=== PATIENT | male | born 1975 | race Caucasian/White ===

== ENCOUNTER 2021-02-08 17:12 | Inpatient (IN) | payer OTHER, SELFPAY ==
[2021-02-08] VITALS (8 sets, daily range): BP systolic 105–130; BP diastolic 62–74; PULSE 89–109; RESP 20–32; TEMP 37.2–38.8; O2SAT 89–94
--- NOTE | ~2021-02-08 | CT_ITS ---
EXAMINATION: CTA chest PE protocol DATE: 02/10/2021 12:51 INDICATION: Shortness of breath. COVID-19 positive on 02/01/21. TECHNIQUE: Computed tomography angiography (CTA) of the chest was performed with 100 mL Omnipaque-350 intravenous contrast timed to evaluate the pulmonary arteries. Coronal maximum intensity projection 3D-reconstructions were created by the technologist. Automated exposure control and iterative reconst ruction technique were employed. The dose-length product was 410.34 mGy-cm. COMPARISON: CT abdomen and pelvis 09/29/2009 FINDINGS: There are patchy groundglass opacities in all lobes and patchy airspace opacities in most l obes with areas of architectural distortion, consistent with COVID-19 pneumonia. No pleural effusion. The heart size is normal. No pericardial effusion. There is a small sliding hiatal hernia. There is no pulmonary embolus. The heart size is normal. No pericardial effusion. Calcified mediastinal lymph nodes are consistent with old granulomatous disease. There is mild mediastinal lymphadenopathy, likel y reactive. There is mild thoracic spondylosis. IMPRESSION: 1. No pulmonary embolus. 2. Diffuse lung disease, consistent with COVID-19 pneumonia. 3. Mild mediastinal lymphadenopathy, likely reactive. Reviewed, dictated and finalized at location A.
--- NOTE | ~2021-02-08 | XR_ITS ---
XR chest 1V 02/08/2021 18:13 Indication: Cough, fever and chills Procedure: PA and lateral views of the chest Comparison: No prior studies for comparison. Findings: Patchy bilateral airspace disease, compatible with pneumonia. Heart size normal. No signifi cant effusion or pneumothorax. No acute osseous abnormality. Impression: 1: Patchy bilateral airspace disease, compatible with pneumonia. Reviewed, dictated and finalized at location A. Impression: 1: Patchy bilateral airspace disease, compatible with pneumonia.
[2021-02-08 17:29] LABS: Basophils Percent Auto 0.1 % (0.2-1.2); Hematocrit 47.8 % (42.0-52.0); Hemoglobin 15.8 g/dL (14.0-18.0); Immature Granulocyte Absolute 0.03 K/mm3 (0.00-0.031); Immature Granulocyte Percent A 0.4 % (0-0.5); Lymphocytes Absolute Auto 1.01 K/mm3 (0.9-3.2); Lymphocytes Percent Auto 14.9 % (18.3-44.2); Mean Corpuscular HGB Conc 33.1 g/dl (32-36); Mean Corpuscular Hemoglobin 29.5 pg (26-34); Mean Corpuscular Volume 89.2 fl (80-100); Monocytes Absolute Auto 0.3 K/mm3 (0.1-0.6); Neutrophils Absolute Auto 5.4 K/mm3 (1.3-6.7); Neutrophils Percent Auto 79.6 % (45.5-73.1); Platelet Count Result 166 k/mm3 (150-375); Red Blood Count 5.36 M/mm3 (4.6-6.20); Red Cell Distribution Width 12.7 % (11.5-14.5); White Blood Count 6.8 K/mm3 (4.5-10.0)
[2021-02-08 17:40] LABS: Alanine Aminotransferase 75 U/L (4-50); Albumin Level 4.2 g/dL (3.5-5.1); Alkaline Phosphatase 52 U/L (38-126); Anion Gap 11 mmol/L (8-16); Aspartate Amino Transferase 73 U/L (17-59); Bilirubin,Total 0.6 mg/dL (0.2-1.3); Blood Urea Nitrogen 20 mg/dL (9-20); Calcium 8.6 mg/dL (8.4-10.2); Carbon Dioxide 25 mmol/L (22-30); Chloride 99 mmol/L (98-107); Estimated CRCL calculation 57 ml/min; Estimated Glomerular Filt Rate 50; Glucose 122 mg/dL (75-110); Lipase 98 U/L (23-300); Sodium 135 mmol/L (137-145)
--- NOTE | 2021-02-08 18:57 | ED.GENADULT ---
HPI - General Adult General Chief complaint: Nausea/Vomiting/Diarrhea Stated complaint: COVID+, diarrhea Time Seen by Provider: 02/08/21 18:42 Source: patient and RN notes reviewed Mode of arrival: ambulatory Limitations: no limitations History of Present Illness HPI narrative: This is a 45 year old male who presents for evaluation of diarrhea with COVID. He states he developed symptoms of covid 10 days ago. He reports headache, fever, diarrhea and cough. He states his headaches have resolved. He continues to have intermittent cough but he denies chest pain or sob. He has been checking his oxygen saturation at home and he reports his saturation has in 95%. He states he came to ER because he has been having watery, nonbloody diarrhea for days. He denies abdominal pain, nausea or vomiting. He has not been taking any medication for his diarrhea . He has only been taking Tylenol every 4 hours. He tested positive for covid on 02/01/21. He has not been vaccinated. Related Data Home Medications Medication Instructions Recorded Confirmed lisinopril 20 mg PO DAILY 02/08/21 Allergies Allergy/AdvReac Type Severity Reaction Status Date / Time No Known Allergies Allergy Verified 02/08/21 19:36 Review of Systems Review of Systems: All systems reviewed & are unremarkable except as noted in HPI and below PMFSH Past Medical History Medical History (Updated 02/08/21 @ 21:51 by Kelsi Forte MD) Hypertension Surgical History Surgical History (Updated 02/08/21 @ 19:03 by Kelsi Forte MD) Hx of tonsillectomy Family History Family History (Updated 03/31/14 @ 07:13 by DOCTOR UNKNOWN) Grandparent Carcinoma of colon Mother Family history of hyperthyroidism Social History Social History Smoking status: Never smoker Alcohol intake: never Exam Const: General: no acute distress and alert Orientation/consciousness: patient oriented x3 Other: appears to not feel well Eyes: EOM: EOMs intact bilaterally Resp: Effort & Inspection: normal respiratory effort, no retractions, not tachypneic and no use of accessory muscles Auscultation: crackles Cardio: Rate: regular rate Rhythm: regular rhythm Heart sounds: no murmurs GI: GI Palp: Yes Soft to palpation, No Tenderness to palpation present (GI) and No Guarding due to palpation present (GI) Auscultation: normal bowel sounds Skin: General skin exam: normal color Rashes: no rashes Neuro: General: patient oriented x3, moves all extremities and CN's II-XI intact bilaterally Psych: Mental Status: mental status grossly normal Affect: normal affect Course Reevaluation(s) Reevaluation #1: Patient has been doing well in ER. His oxygen saturation has been running 88-89% on room air at rest in the bed. Nursing staff placed him on 2 L NC. He is agreeable to admission for treatment of covid pneumonia. Date: 02/08/21 Time: 21:42 Consultations Consultation #1: I discussed case with Dr. Manley. She accepts patient to medical floor. She recommends starting Remdesivir, rocephin, azithromycin and covalescent plasma on patient. Date: 02/08/21 Time: 21:02 Vital Signs Vital signs: Vital Signs Temperature 101.5 F H 02/08/21 17:18 Pulse Rate 109 H 02/08/21 17:18 Respiratory Rate 20 02/08/21 17:18 Blood Pressure 130/62 02/08/21 17:18 Pulse Oximetry 94 02/08/21 17:18 Temperature 101.9 F H 02/08/21 20:01 Pulse Rate 89 02/08/21 20:01 Respiratory Rate 26 H 02/08/21 21:23 Blood Pressure 105/74 02/08/21 20:01 Pulse Oximetry 89 L 02/08/21 21:23 Medical Decision Making Vital Signs Vital Signs: Vital Signs Temperature 101.5 F H 02/08/21 17:18 Pulse Rate 109 H 02/08/21 17:18 Respiratory Rate 20 02/08/21 17:18 Blood Pressure 130/62 02/08/21 17:18 Pulse Oximetry 94 02/08/21 17:18 Temperature 101.9 F H 02/08/21 20:01 Pulse Rate 89 02/08/21 20:01 Respiratory Rate 26 H 02/08/21 21:23 Blood Pres
[2021-02-08] MEDS: ALBUTEROL SULFATE (*SP) AEROSOL 1 PUFF 4 PUFF INHALATION (19:12)
[2021-02-08] MEDS: LACTATED RINGERS 1,000 ML 999 ML IV CONT (19:49)
[2021-02-08] MEDS: IBUPROFEN IV 800 MG/200 ML 800 MG/200 ML BAG 400 MG IVPB (19:49)
[2021-02-08] MEDS: DEXAMETHASONE 2 MG TABLET 6 MG PO (21:09)
[2021-02-08 21:16] LABS: Add Urine Microscopic? YES; Appearance Urine Clear (Clear); Bilirubin Urine Negative (Negative); Blood Urine Negative (Negative); Color Urine Amber (Yellow); Glucose Urine UA Negative (Negative); Ketones Urine Negative (Negative); Leukocyte Esterase Ur Negative LEU/UL (Negative); Mucus Urine Few /lpf; Nitrate Urine Negative (Negative); Protein Urine 2+ mg/dL (Negative); Squamous Epithelial Cell Urine Rare /hpf (Few); Urobilinogen Urine Negative mg/dL (<2.0)
[2021-02-08 21:18] LABS: Specific Grav Ur 1.031 (1.001-1.035)
[2021-02-08 22:12] LABS: Alanine Aminotransferase 64 U/L (4-50); Estimated CRCL calculation 57 ml/min; Estimated Glomerular Filt Rate 50
[2021-02-08 22:17] LABS: INR 1.1; Prothrombin Time 13.6 Seconds (11.1-14.7)
[2021-02-09] VITALS (10 sets, daily range): BP systolic 107–142; BP diastolic 66–89; PULSE 68–93; RESP 14–20; TEMP 36.4–36.9; O2SAT 89–97
[2021-02-09] MEDS: REMDESIVIR 200 MG/NS 250 ML 200 MG/250 ML BAG 250 MG IVPB (00:16)
--- NOTE | 2021-02-09 05:35 | PM.IMHP ---
H&P: HPI History of Present Illness Date/Time: 02/09/21 05:35 Chief Complaint: DIARRHEA Narrative: THIS IS A 45-YEAR-OLD MALE WITH PAST MEDICAL HISTORY SIGNIFICANT FOR HYPERTENSION, PATIENT PRESENTED TO THE EMERGENCY ROOM DUE TO ONGOING DIARRHEA, FEVERS, MALAISE BODY ACHES AND PAIN MUSCLE PAIN HE TESTED POSITIVE FOR COVID ON January BUT HAS NOTED PERSISTENT FEVERS AND DIARRHEA COUGH PRODUCTIVE OF CLEAR SPUTUM. PRELIMINARY WORKUP WAS SIGNIFICANT FOR MILDLY ELEVATED CREATININE, A CHEST X-RAY WITH PATCHY BILATERAL INFILTRATES. Review of Systems Review of Systems: Narrative: FEVERS AND DIARRHEA Constitutional: Constitutional: Reports body ache(s), Reports chills, Reports fever(s), Reports lethargy and Reports malaise Eyes: Eyes: Denies change in vision ENT: Denies dysphagia, Denies nasal congestion, Denies nasal discharge, Denies nasal obstruction and Denies odynophagia Cardiovascular: Cardiovascular: Denies chest pain, Denies irregular heart rhythm, Denies lightheadedness, Denies radiating jaw, neck or arm pain, Denies palpitations and Denies dyspnea on exertion Respiratory: Respiratory: Denies change in phlegm color, Reports cough and Reports dyspnea Gastrointestinal: Gastrointestinal: Reports diarrhea, Denies nausea and Denies vomiting Comments: WATERY DIARRHEA Genitourinary: Genitourinary: Reports no additional male genitourinary complaints Musculoskeletal: Musculoskeletal: Reports no additional musculoskeletal complaints, Denies arthralgias and Denies joint swelling Integumentary/Breasts: Skin/Breast: Reports system reviewed and no additional complaints, except as docu Neurologic: Reports system reviewed and no additional complaints, except as documented Psychiatric: Psychiatric: Reports no additional psychiatric complaints Endocrine: Endocrine: Reports no additional endocrine complaints Hematologic/Lymphatic: Hematologic/Lymphatic: Reports no additional hematologic/lymphatic complaints Allergic/Immunologic: Allergic/Immunologic: Reports no additional allergic/immunologic complaints [facility] Past Medical History Medical History (Updated 02/08/21 @ 21:51 by Kelsi Forte MD) Hypertension Surgical History Surgical History (Updated 02/08/21 @ 19:03 by Kelsi Forte MD) Hx of tonsillectomy Family History Family History (Updated 03/31/14 @ 07:13 by DOCTOR UNKNOWN) Grandparent Carcinoma of colon Mother Family history of hyperthyroidism Social History Social History Smoking status: Never smoker Alcohol intake: current Drinks per week: 1 Substance use type: does not use Gender identity (if verbalized by the patient): Male Sexual Orientation (if Verbalized by the Patient): Straight or Heterosexual Spiritual care concerns: No Meds Home Medications and Allergies Home Medications Medication Instructions Recorded Confirmed Type lisinopril 20 mg PO DAILY 02/08/21 02/08/21 History Allergies Allergy/AdvReac Type Severity Reaction Status Date / Time No Known Allergies Allergy Verified 02/08/21 19:36 Vital Signs Vital Signs - 24 hr 02/08/21 17:18 02/08/21 19:38 02/08/21 19:42 Temperature 101.5 F H 101.9 F H Pulse Rate 109 H 95 95 Respiratory Rate 20 28 H 23 H Blood Pressure 130/62 106/70 106/70 Pulse Oximetry 94 94 91 02/08/21 19:49 02/08/21 20:01 02/08/21 21:23 Temperature 101.9 F H 101.9 F H Pulse Rate 89 Respiratory Rate 32 H 26 H Blood Pressure 105/74 Pulse Oximetry 90 89 L 02/08/21 22:24 02/08/21 23:13 02/09/21 00:00 Temperature 99.0 F 97.5 F L Pulse Rate 100 76 Respiratory Rate 26 H 18 Blood Pressure 105/74 124/79 Pulse Oximetry 94 94 96 02/09/21 04:18 Temperature 98.2 F Pulse Rate 68 Respiratory Rate 18 Blood Pressure 121/81 Pulse Oximetry 90 Exam Narrative: Exam Narrative: SITTING IN [facility] Const: General: cooperative, comfortable, no acute distress, well developed, alert, awake and other ( WELL-APPEAR
[2021-02-09 06:38] LABS: Prothrombin Time 13.3 Seconds (11.1-14.7)
[2021-02-09 06:39] LABS: Alanine Aminotransferase 62 U/L (4-50); Estimated CRCL calculation 71 ml/min; Estimated Glomerular Filt Rate > 60
--- NOTE | 2021-02-09 06:44 | ADMGEN ---
This patient, Junito Olmos, was admitted to [address] [place] [address] Room 300-01. Patient/family oriented to hospital policies and general routines including ID bracelet, bed and alarms, visiting hours, pain management, procedures, bathroom and other care routines, personal items, smoking policy, room service/diet, and visiting hours. Information on how to activate the Rapid Response Team has been discussed. Patient/Family are encouraged to report perceived risks to care and to ask questions if they do not understand what they are told or what they should do. Patient arrived on 3 lpm NC, denying SOB, at the end of the shift, O2 was removed. He stated that he has coughed out copious amounts of clear sputum and that he was starting to feel better. He received IV Ceftriaxone, Azithromycin, and Remdesivir. He denies pain or difficulty with ambulation. He moves independently to and from the BR w/o difficulty. Consent for convalescent plasma was signed though not received this shift. He stated that his only prescription medication was lisinopril. We discussed hospital policy, treatments, medications and health monitoring. He was given the layout of the room and instructions on the call light remote system.
[2021-02-09 09:03] LABS: CRP 6.9 mg/dL (<1.0); Lactate Dehydrogenase 1209 U/L (313-618)
[2021-02-09] MEDS: ENOXAPARIN 40 MG/0.4 ML SYRINGE SUB-Q ×2 (09:11→20:17)
[2021-02-09] MEDS: lisinopriL 20 MG TABLET PO (09:11)
[2021-02-09] MEDS: DEXAMETHASONE 2 MG TABLET 6 MG PO (09:14)
[2021-02-09] MEDS: TUBING, BLOOD PLUM PUMP TUBING 1 EACH XX (12:30)
--- NOTE | 2021-02-09 13:26 | PM.IMPN ---
Progress Note: A&P Assessment and Plan (1) Pneumonia due to COVID-19 virus: Code(s): U07.1 - COVID-19; J12.82 - Pneumonia due to coronavirus disease 2018 Status: Acute Assessment and Plan: patient is improving on current therapy of Remdesivir, Decadron here and Lovenox - patient is receiving plasma at this time - inflammatory markers are elevated, will continue to trend - he has been able to be weaned off oxygen today. We will monitor him overnight to ensure he does not become hypoxic and possibly discharge tomorrow if he remains stable -no abx indicated at this time, no signs of bacterial infection -liver enzymes slightly elevated likely due to infection -encouraged the pt to get the COVID vaccine in 3-6 months after he improves (2) Acute respiratory failure with hypoxia: Code(s): J96.01 - Acute respiratory failure with hypoxia Status: Acute Assessment and Plan: 2/2 to above -Pt is now off o2 -PE seems less likely. d-dimer elevated due to infx. Will trend -if pt worsens or d-dimer goes up, consider ordering a CTA (3) Diarrhea: Qualifiers: Diarrhea type: unspecified type Qualified Code(s): R19.7 - Diarrhea, unspecified Code(s): R19.7 - Diarrhea, unspecified Status: Acute Assessment and Plan: Improving -likely due to infx (4) HTN (hypertension), benign: Code(s): I10 - Essential (primary) hypertension Status: Acute Assessment and Plan: last bp 124/80 -continue lisinopril Time Spent With Patient Time with patient: 25 - 35 minutes Subjective Date/time seen: 02/09/21 13:26 Interval history: Pt is a 45-year-old male here for COVID-19. Patient was not feeling well this morning but by the time I saw him this afternoon he was feeling much better. He says he has not felt this good in a week or so but felt very lousy this morning. The nurse states that he had a lot of coughing this morning and improved after the breathing treatment. The patient states he is eating and drinking okay. He has not had any further diarrhea. No chest pain. Review of Systems Review of Systems: All systems reviewed & are unremarkable except as noted in HPI and below Exam Narrative: Exam Narrative: General: Well developed well nourished patient in NAD HEENT: normocephalic Neck: supple Neuro: Alert and oriented x4 CV:RRR Resp:Decreased breath sounds and crackles best heard in the right lower lung Abd: Soft, non distended. No pain to palpation. Positive bowel sounds Extremities: No swelling, erythema, or pain to palpation. Objective Data Vital Signs Vital Signs: Vital Signs - 24 hr 02/08/21 17:18 02/08/21 19:38 02/08/21 19:42 Temperature 101.5 F H 101.9 F H Pulse Rate 109 H 95 95 Respiratory Rate 20 28 H 23 H Blood Pressure 130/62 106/70 106/70 Pulse Oximetry 94 94 91 02/08/21 19:49 02/08/21 20:01 02/08/21 21:23 Temperature 101.9 F H 101.9 F H Pulse Rate 89 Respiratory Rate 32 H 26 H Blood Pressure 105/74 Pulse Oximetry 90 89 L 02/08/21 22:24 02/08/21 23:13 02/09/21 00:00 Temperature 99.0 F 97.5 F L Pulse Rate 100 76 Respiratory Rate 26 H 18 Blood Pressure 105/74 124/79 Pulse Oximetry 94 94 96 02/09/21 04:18 02/09/21 08:00 02/09/21 10:47 Temperature 98.2 F 97.9 F 98.1 F Pulse Rate 68 81 89 Respiratory Rate 18 18 18 Blood Pressure 121/81 142/89 H 123/73 Pulse Oximetry 90 97 95 02/09/21 12:25 02/09/21 12:40 Temperature 97.5 F L 98.0 F Pulse Rate 91 90 Respiratory Rate 18 14 Blood Pressure 119/77 124/80 Pulse Oximetry 93 94 Intake/Output Intake/Output: Intake & Output 02/06/21 02/07/21 02/08/21 02/09/21 23:59 23:59 23:59 23:59 Intake Total 1250 1969 Balance 1250 1969 Meds/Results Medications: Active Medications Generic Name Dose Route Start Last Admin Trade Name Freq PRN Reason Stop Dose Admin Albuterol 2 puff 02/09/21 14:00 Albuterol Sulfate (*Sp) In
[2021-02-09] MEDS: ALBUTEROL SULFATE (*SP) INHALER 2 PUFF INHALATION ×2 (13:47→20:18)
--- NOTE | 2021-02-09 14:42 | PCNSR ---
On 02/09/21, the student, [ Nora Pope], provided care and completed [facility] documentation on this patient. I have reviewed the student's documentation and agree with the findings.
[2021-02-09] MEDS: SODIUM CHLORIDE 0.9% IV 250 ML 30 ML IV CONT (19:50)
[2021-02-09] MEDS: guaiFENesin 12 HR 600 MG TABCR PO (20:17)
[2021-02-09] MEDS: REMDESIVIR 100 MG/NS 250 ML 100 MG/250 ML BAG 250 MG IVPB (21:36)
[2021-02-10] MEDS: ACETAMINOPHEN 325 MG TABLET 650 MG PO (05:13)
[2021-02-10 06:00] VITALS: BP 113/67; PULSE 74; RESP 20; TEMP 36.6; O2SAT 91
[2021-02-10 06:31] LABS: Basophils Percent Auto 0.1 % (0.2-1.2); Hematocrit 42.4 % (42.0-52.0); Hemoglobin 14.3 g/dL (14.0-18.0); Immature Granulocyte Absolute 0.14 K/mm3 (0.00-0.031); Immature Granulocyte Percent A 1.4 % (0-0.5); Lymphocytes Absolute Auto 0.89 K/mm3 (0.9-3.2); Lymphocytes Percent Auto 8.9 % (18.3-44.2); Mean Corpuscular HGB Conc 33.7 g/dl (32-36); Mean Corpuscular Hemoglobin 29.7 pg (26-34); Mean Corpuscular Volume 88.1 fl (80-100); Mean Platelet Volume 9.3 fl (7.4-10.4); Monocytes Absolute Auto 0.7 K/mm3 (0.1-0.6); Monocytes Percent Auto 6.7 % (2.6-8.5); Neutrophils Absolute Auto 8.3 K/mm3 (1.3-6.7); Neutrophils Percent Auto 82.9 % (45.5-73.1); Platelet Count Result 189 k/mm3 (150-375); Red Blood Count 4.81 M/mm3 (4.6-6.20); Red Cell Distribution Width 12.9 % (11.5-14.5)
[2021-02-10 06:40] LABS: Prothrombin Time 13.4 Seconds (11.1-14.7)
[2021-02-10 06:42] LABS: D Dimer 0.62 ug/mL (<0.48)
[2021-02-10 06:48] LABS: Alanine Aminotransferase 68 U/L (4-50); Albumin Level 3.8 g/dL (3.5-5.1); Alkaline Phosphatase 53 U/L (38-126); Anion Gap 11 mmol/L (8-16); Aspartate Amino Transferase 76 U/L (17-59); Bilirubin,Total 0.5 mg/dL (0.2-1.3); Blood Urea Nitrogen 22 mg/dL (9-20); CRP 4.5 mg/dL (<1.0); Calcium 8.7 mg/dL (8.4-10.2); Carbon Dioxide 22 mmol/L (22-30); Chloride 106 mmol/L (98-107); Estimated CRCL calculation 84 ml/min; Estimated Glomerular Filt Rate > 60; Glucose 130 mg/dL (75-110); Lactate Dehydrogenase 1125 U/L (313-618); Potassium 3.5 mmol/L (3.4-5.0); Sodium 139 mmol/L (137-145)
[2021-02-10 08:10] VITALS: O2SAT 92
[2021-02-10] MEDS: DEXAMETHASONE 2 MG TABLET 6 MG PO (08:13)
[2021-02-10] MEDS: guaiFENesin 12 HR 600 MG TABCR PO (08:13)
[2021-02-10] MEDS: ENOXAPARIN 40 MG/0.4 ML SYRINGE SUB-Q (08:13)
[2021-02-10] MEDS: lisinopriL 20 MG TABLET PO (08:14)
[2021-02-10] MEDS: ALBUTEROL SULFATE (*SP) INHALER 2 PUFF INHALATION (08:18)
[2021-02-10 09:59] VITALS: O2SAT 92
--- NOTE | 2021-02-10 12:12 | PM.DS ---
DS: Admitting Diagnosis Admitting Diagnosis Admitting Diagnosis: COVID DS: Discharge Diagnosis Discharge Diagnosis (1) Pneumonia due to COVID-19 virus: Code(s): U07.1 - COVID-19; J12.82 - Pneumonia due to coronavirus disease 2019 Status: Acute Assessment and Plan: patient admitted 02/08/21 and was given Remdesivir, Decadron and Lovenox -CTA without PE but extensive PNA - patient received plasma 02/09/21 - he was able to be weaned off o2. We will monitor him overnight to ensure he does not become hypoxic and possibly discharge tomorrow if he remains stable -Pt was walked before discharge with RN and sats were 92-94% -liver enzymes slightly elevated likely due to infection -encouraged the pt to get the COVID vaccine in 3-6 months after he improves (2) Acute respiratory failure with hypoxia: Code(s): J96.01 - Acute respiratory failure with hypoxia Status: Acute Assessment and Plan: 2/ to above -Pt off o2 at d/c. Recommended he buy a pulse ox and watch his o2 and come back to the ER if he drops in the 80s -no PE on CTA (3) Diarrhea: Qualifiers: Diarrhea type: unspecified type Qualified Code(s): R19.7 - Diarrhea, unspecified Code(s): R19.7 - Diarrhea, unspecified Status: Acute Assessment and Plan: Improving -likely due to infx (4) HTN (hypertension), benign: Code(s): I10 - Essential (primary) hypertension Status: Acute Assessment and Plan: last bp 113/67 -continue lisinopril DS: Summary Hospital Course Hospital Course: patient is a healthy 45-year-old male with a history of hypertension who presented emergency room on 02/08/21 for diarrhea, shortness of breath and COVID-19 ( Testing positive 02/01/21). vitals in the ER were temperature 101.5? he, respiratory rate 20, pulse 109, blood pressure 130/62, pulse ox 94. CBC within normal limits. Creatinine slightly elevated 1.5. Chest x-ray revealed patchy bilateral airspace disease compatible with pneumonia. Patient was admitted to the hospitalist service and started on Remdesivir, Lovenox, and Decadron. He improved greatly also this and was able to be weaned off oxygen. CTA was done which did not show any PE. The day of discharge she was off oxygen with no shortness of breath and eager to go home. The nurse walked around the halls and he was satting at 92-94% during this walk and did not require oxygen. it was recommended that he continue to be active to ensure he does not form blood clots and to monitor his oxygen saturations at home and if he drops down 80% he should come back to emergency room. Overall, patient had improvement throughout his stay and was educated about the worrisome signs and symptoms to come back to the emergency room for and was discharged in stable condition. Status at Discharge Functional status at discharge: independent ambulation Overall status at discharge: patient is progressing back to baseline Time Spent with Patient Time attestation: Total time spent providing and/or coordinating discharge services:34 min Time spent: Greater than 30 minutes Exam Narrative: Exam Narrative: General: Well developed well nourished patient in NAD HEENT: normocephalic Neck: supple Neuro: Alert and oriented x4 CV:RRR Resp:Decreased breath sounds and crackles best heard in the right lower lung Abd: Soft, non distended. No pain to palpation. Positive bowel sounds Extremities: No swelling, erythema, or pain to palpation. DS: Data Data Completed and Pending Labs on day of discharge: Labs from last 24 hours 02/10/21 02/10/21 02/10/21 05:29 05:29 05:28 WBC 10.0 RBC 4.81 Hgb 14.3 Hct 42.4 MCV 88.1 MCH 29.7 MCHC 33.7 RDW 12.9 Plt Count 189 MPV 9.3 Immature Gran % (Auto) 1.4 H Neut % (Auto) 82.9 H Lymph % (Auto) 8.9 L [place] % (Auto) 6.7 Eos % (Auto) 0.0 Baso % (Auto) 0.1 L Lymph # (Auto) 0.89 L
[2021-02-10 13:05] VITALS: O2SAT 94
== END 2021-02-10 13:48 | disposition home or self-care (01) | DRG 177 ==
LOC: ANHED 21:51 → ANH3MEDSUR 22:06
PROVIDERS: Emergency Medicine; Physician Assistant; Admitting Provider Internal Medicine; Emergency Provider General Practice; Visit Provider Internal Medicine
DX: U07.1 COVID-19 (principal); J12.82 Pneumonia due to coronavirus disease 2019; J96.01 Acute respiratory failure with hypoxia; I10 Essential (primary) hypertension
CPT/HCPCS: 36415; 36430; 71045; 71275; 80048; 80053; 80076; 81001; 82565; 82728; 83615; 83690; 84460; 85025; 85380; 85610; 86140; 86900; 86901; 94640; 96365; 96367; 99285; A9270; G0378; J0456; J0696; J1650; J1741; J7050; J7120; J8540; P9059; Q9967

== ENCOUNTER 2021-02-11 19:44 | Inpatient (IN) | payer OTHER, SELFPAY ==
--- NOTE | ~2021-02-11 | XR_ITS ---
XR chest 2V 02/11/2021 20:25 Indication: Sternal chest pain Procedure: 2 view chest Comparison: 02/08/2021 Findings: Patchy bilateral airspace disease, compatible with pneumonia. Pleural effusion or pneumotho rax. No acute osseous abnormality. Impression: 1: Patchy bilateral airspace disease, compatible with pneumonia. Reviewed, dictated and finalized at location A. Impression: 1: Patchy bilateral airspace disease, compatible with pneumonia.
[2021-02-11 20:15] VITALS: BP 142/88; PULSE 75; RESP 18; TEMP 36.9; O2SAT 90
--- NOTE | 2021-02-11 20:15 | ECG_ITS ---
Measurements Intervals [place] Rate: 75 P: 55 FL: 140 QRS: -35 QRSD: 103 T: -7 QT: 378 QTc: 424 Interpretive Statements SINUS RHYTHM LEFT AXIS DEVIATION POOR R WAVE PROGRESSION, ANTERIOR LEADS BORDERLINE T WAVE ABNORMALITY- ANTEROLAT/INF LEADS BASELINE ARTIFACT- I, II, III, AVR, AVL, V1 BORDERLINE ECG Electronically Signed On 02-12-2021 11:07:25 CDT by Juan C Bustillo D.O.
--- NOTE | 2021-02-11 20:21 | PC.NURSE ---
Patient taken to xray.
--- NOTE | 2021-02-11 21:13 | ED.SOB ---
HPI - SOB/Dyspnea General Chief Complaint: Shortness of Breath/Dyspnea Stated Complaint: covid positive. sob Time Seen by Provider: 02/11/21 20:28 Source: RN notes reviewed History of Present Illness HPI Narrative: Patient presents emergency room from home for hypoxia. Patient was diagnosed with COVID-19 on 01 February. Patient states that he had been in the hospital was discharged yesterday secondary hypoxia states at home today his oxygen saturations are staying in the upper 80s states he did have a brief episode of midsternal chest tightness with episode of shortness of breath earlier today but states that has resolved he denies any fevers or chills abdominal pain nausea vomiting or any other symptoms has been taking his medication as prescribed. Patient states he did not receive the Covid vaccine Related Data Home Medications Medication Instructions Recorded Confirmed lisinopril 20 mg PO DAILY 02/08/21 02/08/21 Allergies Allergy/AdvReac Type Severity Reaction Status Date / Time No Known Allergies Allergy Verified 02/08/21 19:36 Review of Systems Review of Systems: Narrative: Gen.: Denies fevers or chills Eyes: Denies eye pain or visual change ENT: Denies congestion Respiratory: See HPI CV: See HPI GI: Denies abdominal pain nausea, emesis or diarrhea Musculoskeletal: Denies back pain or muscle pain Neuro: Denies numbness, tingling, weakness or focal weakness Skin: Denies rash Except as documented, all other systems reviewed and negative [facility] Past Medical History Medical History (Updated 02/11/21 @ 22:03 by Abel Avila DO) COVID-19 Hypertension Surgical History Surgical History (Updated 02/08/21 @ 19:03 by Kelsi Forte MD) Hx of tonsillectomy Family History Family History (Updated 03/31/14 @ 07:13 by DOCTOR UNKNOWN) Grandparent Carcinoma of colon Mother Family history of hyperthyroidism Social History Social History Smoking status: Never smoker Alcohol intake: current Drinks per week: 1 Substance use type: does not use Gender identity (if verbalized by the patient): Male Spiritual care concerns: No Exam Narrative: Exam Narrative: APPEARANCE: No acute distress, nontoxic, resting in bed EYES: EOMI HEENT: Normocephalic, atraumatic, OMM RESPIRATORY: No respiratory distress Clear to auscultation bilaterally with no rhonchi wheezing or rales. CARDIOVASCULAR: Regular rate and rhythm without murmurs rubs or gallops. ABDOMINAL: Soft, nontender, nondistended, no rebound or guarding MUSCULOSKELETAl: Moves all extremities. No clubbing, cyanosis or edema. NEURO: Awake and alert. Following commands, speech normal, no focal deficits SKIN:: Warm, dry. No rashes lesions or abrasions PSYCHIATRIC: Normal affect/mood, Course Course Emergency Course: Reviewed old records patient was discharged yesterday he did have a CTA of the chest on 02/10/2021 that had no PE Discussed with Dr. Saunders presentation work-up agrees admission at this time. She request the patient be given daily dose of remdesivir as he did not have a dose today but was on it when he is in the hospital prior to discharge yesterday Discussed with patient and family results of workup and diagnosis. Discussed need for admission. Patient and family understand and agree to current treatment plan Vital Signs Vital signs: Vital Signs Temperature 98.5 F 02/11/21 20:15 Pulse Rate 75 02/11/21 20:15 Respiratory Rate 18 02/11/21 20:15 Blood Pressure 142/88 H 02/11/21 20:15 Pulse Oximetry 90 02/11/21 20:15 Temperature 98.5 F 02/11/21 20:15 Pulse Rate 75 02/11/21 20:15 Respiratory Rate 18 02/11/21 20:15 Blood Pressure 142/88 H 02/11/21 20:15 Pulse Oximetry 90 02/11/21 20:15 MDM - SOB/Dyspnea Lab Data Result diagrams: 02/11/21 21:14 02/11/21 21:14 Labs: Lab Results 02/11/21 02/11/21 Range/Units 21
[2021-02-11 21:22] LABS: Basophils Percent Auto 0.1 % (0.2-1.2); Hematocrit 43.3 % (42.0-52.0); Hemoglobin 14.3 g/dL (14.0-18.0); Immature Granulocyte Absolute 0.15 K/mm3 (0.00-0.031); Immature Granulocyte Percent A 1.7 % (0-0.5); Lymphocytes Absolute Auto 0.51 K/mm3 (0.9-3.2); Lymphocytes Percent Auto 5.9 % (18.3-44.2); Mean Corpuscular Hemoglobin 29.5 pg (26-34); Mean Corpuscular Volume 89.3 fl (80-100); Mean Platelet Volume 8.6 fl (7.4-10.4); Monocytes Absolute Auto 0.7 K/mm3 (0.1-0.6); Monocytes Percent Auto 8.2 % (2.6-8.5); Neutrophils Absolute Auto 7.3 K/mm3 (1.3-6.7); Neutrophils Percent Auto 84.1 % (45.5-73.1); Platelet Count Result 256 k/mm3 (150-375); Red Blood Count 4.85 M/mm3 (4.6-6.20); Red Cell Distribution Width 12.9 % (11.5-14.5); White Blood Count 8.7 K/mm3 (4.5-10.0)
[2021-02-11 21:32] LABS: Anion Gap 10 mmol/L (8-16); Blood Urea Nitrogen 23 mg/dL (9-20); Calcium 8.6 mg/dL (8.4-10.2); Carbon Dioxide 24 mmol/L (22-30); Chloride 106 mmol/L (98-107); Estimated CRCL calculation 84 ml/min; Estimated Glomerular Filt Rate > 60; Glucose 142 mg/dL (75-110); Sodium 140 mmol/L (137-145)
[2021-02-11 21:37] LABS: Platelet Estimate Adequate (Adequate)
[2021-02-11 21:38] LABS: Atypical Lymphocytes Present
[2021-02-11 21:46] LABS: Troponin I < 0.012 ng/mL (0.000-0.034)
[2021-02-11 23:09] VITALS: BP 140/92; PULSE 76; RESP 19; O2SAT 92
[2021-02-11] MEDS: REMDESIVIR 100 MG/NS 250 ML 100 MG/250 ML BAG 250 MG IVPB (23:10)
[2021-02-11 23:21] VITALS: BP 153/94; PULSE 71; RESP 18; TEMP 36.6; O2SAT 94
[2021-02-11 23:48] VITALS: O2SAT 92; BMI 28.0
--- NOTE | 2021-02-11 23:49 | ADMGEN ---
This patient, Junito Olmos, was admitted to [facility] Surg Room 324-01. Patient/family oriented to hospital policies and general routines including ID bracelet, bed and alarms, visiting hours, pain management, procedures, bathroom and other care routines, personal items, smoking policy, room service/diet, and visiting hours. Information on how to activate the Rapid Response Team has been discussed. Patient/Family are encouraged to report perceived risks to care and to ask questions if they do not understand what they are told or what they should do.
[2021-02-12] VITALS: BP 132/80; PULSE 71; RESP 18; TEMP 37; O2SAT 91
[2021-02-12 02:09] LABS: Troponin I < 0.012 ng/mL (0.000-0.034)
[2021-02-12 04:00] VITALS: PULSE 72
[2021-02-12 04:52] VITALS: BP 124/82; PULSE 75; RESP 18; TEMP 36.5; O2SAT 91
[2021-02-12 06:48] LABS: Basophils Percent Auto 0.1 % (0.2-1.2); Hematocrit 42.2 % (42.0-52.0); Hemoglobin 13.8 g/dL (14.0-18.0); Immature Granulocyte Absolute 0.14 K/mm3 (0.00-0.031); Immature Granulocyte Percent A 1.7 % (0-0.5); Lymphocytes Absolute Auto 0.73 K/mm3 (0.9-3.2); Lymphocytes Percent Auto 8.9 % (18.3-44.2); Mean Corpuscular HGB Conc 32.7 g/dl (32-36); Mean Corpuscular Hemoglobin 29.4 pg (26-34); Mean Corpuscular Volume 89.8 fl (80-100); Mean Platelet Volume 8.7 fl (7.4-10.4); Monocytes Absolute Auto 0.8 K/mm3 (0.1-0.6); Monocytes Percent Auto 9.1 % (2.6-8.5); Neutrophils Absolute Auto 6.6 K/mm3 (1.3-6.7); Neutrophils Percent Auto 80.2 % (45.5-73.1); Platelet Count Result 236 k/mm3 (150-375); Red Cell Distribution Width 12.7 % (11.5-14.5); White Blood Count 8.2 K/mm3 (4.5-10.0)
[2021-02-12] MEDS: ACETAMINOPHEN 325 MG TABLET 650 MG PO (06:49)
[2021-02-12 07:16] LABS: Alanine Aminotransferase 82 U/L (4-50); Albumin Level 3.5 g/dL (3.5-5.1); Alkaline Phosphatase 49 U/L (38-126); Anion Gap 9 mmol/L (8-16); Aspartate Amino Transferase 56 U/L (17-59); Bilirubin,Total 0.7 mg/dL (0.2-1.3); Blood Urea Nitrogen 23 mg/dL (9-20); Calcium 8.5 mg/dL (8.4-10.2); Carbon Dioxide 23 mmol/L (22-30); Chloride 107 mmol/L (98-107); Estimated CRCL calculation 93 ml/min; Estimated Glomerular Filt Rate > 60; Glucose 117 mg/dL (75-110); Potassium 3.8 mmol/L (3.4-5.0); Sodium 139 mmol/L (137-145)
[2021-02-12 07:23] LABS: Troponin I < 0.012 ng/mL (0.000-0.034)
[2021-02-12 08:30] VITALS: BP 130/83; PULSE 77; RESP 18; TEMP 37.2; O2SAT 94
--- NOTE | 2021-02-12 10:12 | P.HP_ITS ---
H&P: HPI History of Present Illness Date/Time: 02/12/21 10:12 [facility] Past Medical History Medical History (Updated 02/11/21 @ 22:03 by Abel Avila DO) COVID-19 Hypertension Surgical History Surgical History (Updated 02/08/21 @ 19:03 by Kelsi Forte MD) Hx of tonsillectomy Family History Family History Grandparent Carcinoma of colon Mother Family history of hyperthyroidism Social History Social History Smoking status: Never smoker Second hand tobacco smoke exposure: No Alcohol intake: never Drinks per week: 1 Substance use: never Substance use type: does not use Gender identity (if verbalized by the patient): Male Spiritual care concerns: No Meds Home Medications and Allergies Home Medications Medication Instructions Recorded Confirmed Type lisinopril 20 mg PO DAILY 02/08/21 02/12/21 History albuterol sulfate [Proventil HFA] 2 puff INHALATION Q6HRT PRN #6.7 g 02/10/21 02/12/21 Rx dexamethasone 6 mg PO DAILY #7 tablet 02/10/21 02/12/21 Rx Allergies Allergy/AdvReac Type Severity Reaction Status Date / Time No Known Allergies Allergy Verified 02/08/21 19:36 Vital Signs Vital Signs - 24 hr 02/11/21 20:15 02/11/21 23:09 02/11/21 23:21 Temperature 98.5 F 97.9 F Pulse Rate 75 76 71 Respiratory Rate 18 19 18 Blood Pressure 142/88 H 140/92 H 153/94 H Pulse Oximetry 90 92 94 02/11/21 23:48 02/12/21 00:00 02/12/21 04:00 Temperature 98.6 F Pulse Rate 71 72 Respiratory Rate 18 Blood Pressure 132/80 Pulse Oximetry 92 91 02/12/21 04:52 02/12/21 08:30 Temperature 97.7 F 98.9 F Pulse Rate 75 77 Respiratory Rate 18 18 Blood Pressure 124/82 130/83 Pulse Oximetry 91 94 H&P: Results Labs Labs: Short CBC 02/11/21 02/12/21 Range/Units 21:14 06:25 WBC 8.7 8.2 (4.5-10.0) K/mm3 Hgb 14.3 13.8 L (14.0-18.0) g/dL Hct 43.3 42.2 (42.0-52.0) % Plt Count 256 236 (150-375) k/mm3 BMP 02/11/21 02/12/21 21:14 06:25 Sodium 140 139 Potassium 4.0 3.8 Chloride 106 107 Carbon Dioxide 24 23 BUN 23 H 23 H Creatinine 1.00 0.90 Glucose 142 H 117 H Calcium 8.6 8.5 Cardiac Enzymes 02/11/21 02/12/21 02/12/21 Range/Units 21:14 01:19 06:25 Troponin I < 0.012 < 0.012 < 0.012 (0.000-0.034) ng/mL Liver Function 02/12/21 Range/Units 06:25 Total Bilirubin 0.7 (0.2-1.3) mg/dL AST 56 (17-59) U/L ALT 82 H (4-50) U/L Alkaline Phosphatase 49 (38-126) U/L Albumin 3.5 (3.5-5.1) g/dL
[2021-02-12 11:48] VITALS: O2SAT 94
--- NOTE | 2021-02-12 12:36 | PM.SD2 ---
Same Day Admit/Disch: HPI History of Present Illness Chief complaint: Acute Respiratory Failure w/Hypoxia,COVID-19,CP Narrative: Juinto Olmos is a 45 year old male with a history of COVID infection on January 28, 2021 and hypertension who presented emergency room 02/11/21 for oxygen saturations 89% and cough. Patient states that he was just hospitalized and was feeling better and was discharged 02/10/21 After receiving Remdesivir, dexamethasone, and Lovenox. at that time he had no PE on the CTA. He was told to check his oxygen levels if he felt short of breath at home and noticed he was under 90% a couple of times. He had a coughing spell and felt like he could not breathe. He said he started to feel like he had chest tightness because he could not get any air an and he said he panicked. He came back to the emergency room for evaluation But in hindsight thinks he had an anxiety attack. Since being admitted, the patient has not had any symptoms and has not required oxygen today. He has had absolutely no chest pain, arm pain, jaw pain or dyspnea on exertion. He has been walking the halls and does not feel short of breath. He has no swelling in his lower extremities or upper extremities. His cough has improved. He said when he was having the low saturations he was coughing a lot and coughed up a lot of phlegm. He has not had any worsening fevers, diarrhea, nausea, vomiting or abdominal pain. He very badly wants to go home but understands he needs to wait for home oxygen evaluation. He does not have a primary care physician but is going to establish with 1. I spoke with him about a mucus plug and that he can try to utilize Mucinex outpatient and he agreed. He also has inhalers and a steroid at home that he will continue. We discussed antibiotics but have decided to not go further with any further antibiotics since he has no signs or symptoms of a bacterial infection but will need to see his primary care physician in 1-2 weeks to ensure that he continues to improve. [facility] Past Medical History Medical History COVID-19 Hypertension Surgical History Surgical History Hx of tonsillectomy Family History Family History Grandparent Carcinoma of colon Mother Family history of hyperthyroidism Social History Social History (Updated 02/12/21 @ 12:41 by Alina Johnson PA-C) Social History: full code. does not smoke and does not drink. he works at home and lives with his and 3 kids Smoking status: Never smoker Second hand tobacco smoke exposure: No Alcohol intake: never Drinks per week: 1 Substance use: never Substance use type: does not use Gender identity (if verbalized by the patient): Male Spiritual care concerns: No Same Day Admit/Disch: Med Pre-admit Medications Home Medications Medication Instructions Recorded Confirmed Type lisinopril 20 mg PO DAILY 02/08/21 02/12/21 History albuterol sulfate [Proventil HFA] 2 puff INHALATION Q6HRT PRN #6.7 g 02/10/21 02/12/21 Rx dexamethasone 6 mg PO DAILY #7 tablet 02/10/21 02/12/21 Rx Exam Narrative: Exam Narrative: General:Well developed well nourished patient HEENT: Normocephalic, atraumatic, PERRL, Sclerae anicteric, oral mucosa moist. Neck: Supple Resp: crackles at the bases, good air movement. speaking in full sentences without conversational dyspnea Heart: RRR with no murmurs Abd: Soft, nontender. No pain to palpation. Positive bowel sounds Skin: Warm and dry Extremities: No swelling, erythema or pain to palpation Neuro: Alert and Oriented x4 . CN 2-12 intact. No focal neurological deficits. DS: Data Data Completed and Pending Labs on day of discharge: Labs from last 24 hours 02/12/21 02/12/21 02/12/21 06:25 06:25 06:25 WBC 8.2 RBC 4.70 Hgb 13.8 L Hct 42.
--- NOTE | 2021-02-12 13:21 | PCRCNOTE ---
Attempted to walk pt for a Home O2 Eval at 1305. Pt no longer here.
== END 2021-02-12 13:05 | disposition left against medical advice (07) | DRG 177 ==
LOC: ANHED 22:03 → ANH3MEDSUR 22:56
PROVIDERS: Admitting Provider Internal Medicine; Emergency Provider Emergency Medicine; Visit Provider Internal Medicine
DX: U07.1 COVID-19 (principal); J96.01 Acute respiratory failure with hypoxia; I10 Essential (primary) hypertension
CPT/HCPCS: 36415; 71046; 80048; 80053; 84484; 85025; 85610; 93005; 96365; 99285; A9270; G0378

== ENCOUNTER 2024-01-18 03:46 | Emergency (ER) | payer OTHER, SELFPAY ==
[2024-01-18] VITALS (34 sets, daily range): BP systolic 123–144; BP diastolic 89–106; PULSE 58–73; RESP 11–28; TEMP 36.3; O2SAT 91–99
--- NOTE | ~2024-01-18 | XR_ITS ---
EXAMINATION: XR chest 1V portable DATE: 01/18/2024 04:11 INDICATION: Right Central chest pain. TECHNIQUE: frontal view of the chest was obtained. COMPARISON: Chest radiograph dated 02/11/2021 FINDINGS: Significant decrease in the prior airspace opacities in the right suprahilar region in the left mid a nd lower lung zone suggesting some residual scarring related to earlier pneumonia. No pulmonary edema , pleural effusion or pneumothorax. The cardiomediastinal silhouette is normal. Visualized bones and soft tissues are unremarkable. IMPRESSION: 1. Significant decrease in mild opacities in the right suprahilar region and in the left mid and lowe r lung zone and would favor mild residual chronic lung disease related to prior COVID pneumonia over recurrent acute lung disease. Reviewed, dictated and finalized at location A. IMPRESSION: 1. Significant decrease in mild opacities in the right suprahilar region and in the left mid and lower lung zone and would favor mild residual chronic lung di sease related to prior COVID pneumonia over recurrent acute lung disease.
--- NOTE | 2024-01-18 03:47 | ECG_ITS ---
Test Date: 2024-01-18 03:52:01 Measurements Intervals Simpson Rate: 64 P: 43 WI: 178 QRS: -45 QRSD: 116 T: -6 QT: 401 QTc: 414 Interpretive Statements SINUS RHYTHM PATTERN CONSISTENT WITH PULMONARY DISEASE LEFT ANTERIOR FASCICULAR BLOCK [QRS AXIS <= -45, QR IN I, RS IN II] MINIMAL ST DEPRESSION [0.025+ mV ST DEPRESSION] No previous ECG available for comparison Electronically Signed On 01-18-2024 13:04:03 CDT by Scott Lo M.D.
[2024-01-18] MEDS: ASPIRIN 81 MG CHEWABLE TABLET 324 MG PO (03:54)
[2024-01-18 04:01] LABS: Basophils Percent Auto 0.2 % (0.2-1.2); Eosinophils Absolute Auto 0.2 K/mm3 (0-0.3); Eosinophils Percent Auto 2.2 % (0-4.4); Immature Granulocyte Absolute 0.04 K/mm3 (0.00-0.031); Immature Granulocyte Percent A 0.5 % (0-0.5); Lymphocytes Absolute Auto 2.28 K/mm3 (0.9-3.2); Lymphocytes Percent Auto 27.4 % (18.3-44.2); Mean Corpuscular Hemoglobin 29.8 pg (26-34); Mean Corpuscular Volume 87.5 fl (80-100); Mean Platelet Volume 8.9 fl (7.4-10.4); Monocytes Absolute Auto 0.8 K/mm3 (0.1-0.6); Monocytes Percent Auto 9.5 % (2.6-8.5); Neutrophils Percent Auto 60.2 % (45.5-73.1); Platelet Count Result 181 k/mm3 (150-375); Red Blood Count 5.37 M/mm3 (4.6-6.20); Red Cell Distribution Width 12.7 % (11.5-14.5); White Blood Count 8.3 K/mm3 (4.5-10.0)
[2024-01-18 04:15] LABS: Alanine Aminotransferase 42 U/L (6-50); Albumin Level 4.7 g/dL (3.5-5.1); Alkaline Phosphatase 73 U/L (38-126); Anion Gap 10 mmol/L (4-12); Aspartate Amino Transferase 36 U/L (17-59); Bilirubin,Total 0.7 mg/dL (0.2-1.3); Blood Urea Nitrogen 28 mg/dL (9-20); Calcium 9.2 mg/dL (8.4-10.2); Carbon Dioxide 24 mmol/L (22-30); Chloride 107 mmol/L (98-107); Estimated CRCL calculation 69 ml/min; Estimated Glomerular Filt Rate > 60; Glucose 93 mg/dL (65-110); Lipase 54 U/L (23-300); Potassium 4.2 mmol/L (3.4-5.0); Sodium 141 mmol/L (137-145)
[2024-01-18 04:22] LABS: Partial Thromboplastin Time 28.8 Seconds (22.3-36.8); Prothrombin Time 13.2 Seconds (11.1-14.7)
[2024-01-18 04:26] LABS: Troponin I < 0.012 ng/mL (0.000-0.034)
[2024-01-18] MEDS: MAG HYDROX/AL HYDROX/SIMETH 30 ML UDC PO (05:06)
--- NOTE | 2024-01-18 06:57 | ED.GENADULT ---
HPI - General Adult General Chief complaint: Chest Pain Stated complaint: chest pains Time Seen by Provider: 01/18/24 04:01 History of Present Illness HPI narrative: this is a 48-year-old male presenting with burning chest pain in the center of his chest. It is nonradiating 2/10 intensity and comes and goes. Pain is nonradiating, not associated with exertion diaphoresis. No fever chills shortness of breath or cough. Patient states that he spent yesterday at the [facility] eating a large amount of cold food and drinking several beers. Related Data Home Medications Medication Instructions Recorded Confirmed lisinopril 20 mg tablet 20 mg PO DAILY 02/08/21 02/12/21 Allergies Allergy/AdvReac Type Severity Reaction Status Date / Time No Known Allergies Allergy Verified 02/08/21 19:36 [facility] Past Medical History Medical History COVID-19 Hypertension Surgical History Surgical History Hx of tonsillectomy Family History Family History Grandparent Carcinoma of colon Mother Family history of hyperthyroidism Social History Social History Social History: full code. does not smoke and does not drink. he works at home and lives with his and 3 kids Smoking status: Never smoker Second hand tobacco smoke exposure: No Alcohol intake: never Drinks per week: 1 Substance use: never Substance use type: does not use Gender identity (if verbalized by the patient): Male Sexual Orientation (if Verbalized by the Patient): Straight or Heterosexual Spiritual care concerns: No Exam Narrative: APPEARANCE: No apparent distress. Head: atraumatic. EYES: EOMI, NOSE: Atraumatic NECK: Trachea midline RESPIRATORY: No increased rate of breathing CTAB CARDIOVASCULAR: RRR, no peripheral edema ABDOMINAL: Non-distended soft nontender MUSCULOSKELETAl: No obvious deformities NEURO: Alert. Moving 4/4 extremities SKIN:: Warm, dry. Normal color PSYCHIATRIC: Normal affect Course Vital Signs Vital signs: Vital Signs Temperature 97.4 F L 01/18/24 03:48 Pulse Rate 68 01/18/24 03:48 Respiratory Rate 15 01/18/24 03:48 Blood Pressure 144/106 H 01/18/24 03:48 Pulse Oximetry 96 01/18/24 03:48 Oxygen Delivery Room Air 01/18/24 03:48 Temperature 97.4 F L 01/18/24 03:48 Pulse Rate 65 01/18/24 07:31 Respiratory Rate 14 01/18/24 07:31 Blood Pressure 139/97 H 01/18/24 07:31 Pulse Oximetry 93 01/18/24 07:31 Oxygen Delivery Room Air 01/18/24 03:52 Medical Decision Making MDM Narrative Medical decision making narrative: -Course: 48-year-old male presenting with burning chest pain. Given a GI cocktail with complete resolution of his symptoms. Workup negative. Pain likely due to GERD. -DDX includes but is not limited to: ACS, gastritis, GERD, esophagitis, pneumonia pneumothorax -Co-morbidities complicating care: asthma hypertension -Social determinants of health: patient works in IT, drinks alcohol occasionally, denies drug use -Independent interpretation of studies: labs reviewed within normal limits. Chest x-ray normal Independent EKG interpretation: Rhythm [sinus], Rate [64], [place]in -[normal], CA -[normal], QRS [narrow], QTC [normal], T waves -[negative for concerning inversions], ST Segments - [Negative for concerning elevations] Final interpretations: [Normal Sinus Rhythm] -Interventions: Pepcid, Maalox -Shared decision making / Disposition: discharge -RX Pepcid Vital Signs Vital Signs: Vital Signs Temperature 97.4 F L 01/18/24 03:48 Pulse Rate 68 01/18/24 03:48 Respiratory Rate 15 01/18/24 03:48 Blood Pressure 144/106 H 01/18/24 03:48 Pulse Oximetry 96 01/18/24 03:48 Oxygen Delivery Room Air 01/18/24 03:48 [place]
[2024-01-18 07:48] LABS: Troponin I < 0.012 ng/mL (0.000-0.034)
== END 2024-01-18 07:58 | disposition home or self-care (01) ==
PROVIDERS: Emergency Provider Emergency Medicine; PCP Family Medicine
DX: K21.9 Gastro-esophageal reflux disease without esophagitis (principal); I10 Essential (primary) hypertension
CPT/HCPCS: 36415; 71045; 80053; 83690; 84484; 85025; 85610; 85730; 93005; 99284; A9270